=== PATIENT | female | born 1990 | race Caucasian/White ===

== ENCOUNTER 2019-11-03 17:44 | Emergency (ER) | payer MEDICAID ==
[~2019-11-03] VITALS: Ht 175.3 cm; Wt 108.9 kg
[2019-11-03 17:44] VITALS: BP_SYST 146
--- NOTE | 2019-11-03 17:44 | NUR ---
BROUGHT BACK TO BED #7 AND TRIAGED, REPORT GIVEN TO BEATRIS/ALVIN
--- NOTE | 2019-11-03 17:50 | NUR ---
Pt. presents to the ED ambulatory, A&Ox4 with c/o of right eye droop that began today approx 1600. Pt. states that she is noticed a droop and is experiencing some tingling ang tugging around right eye upper eyelid. Pt has clear speech and is speaking in clear and full sentences with no other abnormalities or deficits noted. Pt. denies other symptoms. VSS. Will continue to monitor.
--- NOTE | 2019-11-03 18:00 | NUR ---
at bedside examining pt.
--- NOTE | 2019-11-03 18:10 | NUR ---
Pt. off unit to radiology accompanied by radiology supervisor via wheelchair.
--- NOTE | 2019-11-03 18:15 | NUR ---
Pt. back on unit from radiology.
--- NOTE | 2019-11-03 18:30 | NUR ---
MD at bedside discussing results with pt.
[2019-11-03 18:58] VITALS: BP_SYST 101
--- NOTE | 2019-11-03 18:58 | NUR ---
Patient given written and verbal discharge instructions and verbalizes understanding. ER MD discussed with patient the results and treatment provided. Patient in stable condition. ID arm band removed. Patient educated on pain management and to follow up with PMD. Pain Scale 0/10. Opportunity for questions provided and answered. Medication side effect fact sheet provided.
== END 2019-11-03 18:58 | disposition home or self-care (01) ==
LOC: SED 17:44
DX: H02.401 Unspecified ptosis of right eyelid (principal)
CPT/HCPCS: 70450-TC; 81025; 99284